=== PATIENT | male | born 1950 | race Caucasian/White ===

== ENCOUNTER 2022-03-02 09:42 | Emergency (ER) | payer MEDICARE, SELFPAY ==
[2022-03-02 09:45] VITALS: BP 127/76; PULSE 90; RESP 20; TEMP 36.8; O2SAT 98; BMI 21.9
--- NOTE | 2022-03-02 09:56 | CTR_ITS ---
PROCEDURE INFORMATION: Exam: CT Abdomen And Pelvis With Contrast Exam date and time: 03/02/2022 10:48 AM Age: 72 years old Clinical indication: Abdominal pain; Localized; Lower; Prior surgery; Additional info: Abd pain TECHNIQUE: Imaging protocol: Computed tomography of the abdomen and pelvis with contrast. Radiation optimization: All CT scans at this facility use at least one of these dose optimization techniques: automated exposure control; mA and/or kV adjustment per patient size (includes targeted exams where dose is matched to clinical indication); or iterative reconstruction. Contrast material: OMNI 300; Contrast volume: 95 ml; Contrast route: INTRAVENOUS (IV); COMPARISON: No relevant prior studies available. RADIATION DOSE METRICS: Total DLP (mGy-cm): 1249.13 FINDINGS: Lungs: There are emphysematous changes at the lung bases. Liver: Normal. No mass. Gallbladder and bile ducts: Normal. No calcified stones. No ductal dilation. Pancreas: Normal. No ductal dilation. Spleen: Small incidental splenule. Adrenal glands: Normal. No mass. Kidneys and ureters: 4.4 cm left renal cyst has benign features. Follow-up is not necessary. Stomach and bowel: There are multiple colonic diverticula. Associated mucosal thickening and mesenteric inflammatory stranding is present at the junction of the distal descending and sigmoid colon consistent with diverticulitis. No large abscess formation is seen. Appendix: No evidence of appendicitis. Intraperitoneal space: Unremarkable. No free air. No significant fluid collection. Vasculature: Multi-vessel atherosclerotic disease. Lymph nodes: Unremarkable. No enlarged lymph nodes. Urinary bladder: See Reproductive finding. Reproductive: Prostate gland indents the base of the bladder consistent with median lobe enlargement. Bones/joints: There are severe degenerative changes in the visualized spine. Patient is status post L4-L5 and L5-S1 interbody fusion. There are broad-based disc osteophyte complexes across the L2-L3 and L3-L4 levels. Soft tissues: Unremarkable. CT/CT abdomen pelvis w con* [id number] IMPRESSION: Findings consistent with acute diverticulitis. COMMENTS: Consistent with the [place] [employer]'s Incidental Findings Committee white paper (J Am Osiel Radiol 2018): Any incidental renal lesion less than 1 cm or classified as too small to characterize, or any incidental cystic renal lesion characterized as simple-appearing, is likely benign. No follow-up imaging is recommended for these lesions per consensus recommendations based on imaging criteria.
--- NOTE | 2022-03-02 09:56 | ECG_ITS ---
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 Measurements Intervals [place] Rate: 83 P: 62 MA: 180 QRS: 6 QRSD: 82 T: 62 QT: 339 QTc: 399 Interpretive Statements SINUS RHYTHM POSSIBLE RIGHT VENTRICULAR CONDUCTION DELAY [RSR (QR) IN V1/V2] No previous ECG available for comparison Electronically Signed On 03-02-2022 11:33:37 CDT by Lamine Liao M.D. [id number]
--- NOTE | 2022-03-02 09:56 | W.ED.ABDPA2 ---
HPI - Abdominal Pain General: Chief Complaint: Abdominal Pain Stated Complaint: chest pain Time Seen by Provider: 03/02/22 09:46 Source: patient Mode of arrival: ambulatory Limitations: no limitations History of Present Illness: 9-year-old male presents emergency complaining of abdominal pain began yesterday. Pain is in the left lower quadrant nausea vomiting diarrhea no hematochezia melena hematemesis cough cramps. No fever sweats chills no dysuria urgency or frequency. MD elicited complaint: abdominal pain Pertinent past history: none Onset (ago): hour(s) Pain Consistency: constant Location: LLQ Severity: moderate Quality: cramping Radiation: none Exacerbating factors: nothing Relieving factors: nothing Associated Symptoms: Reports GI cramping, nausea, poor appetite and vomiting; Denies anorexia, belching, bloating, change in bowel habits, change in stool character, chills, coffee ground emesis, constipation, diarrhea, dyspepsia, dysuria, excessive flatus, fever(s), heartburn, hematochezia, hematuria, hematemesis, fecal incontinence, loose stools, melena and syncope Review of Systems Const: Denies: fever(s) or chills ENMT: Denies: throat pain, ear or mastoid pain, nasal discharge or nasal congestion Card: Denies: syncope Resp: Denies: dyspnea, productive cough or non-productive cough GI: Reports: nausea, vomiting and GI cramping; Denies: hematemesis, coffee ground emesis, heartburn, diarrhea, constipation, bloating, belching, excessive flatus, fecal incontinence, change in bowel habits, change in stool character, hematochezia or melena : Denies: dysuria or hematuria Skin/Breast: Denies: rash or pruritus PFS ED PFSH: Medical History (Updated 03/02/22 @ 13:17 by Kenneth Murphy DO) No pertinent past medical history Surgical History (Updated 03/02/22 @ 13:17 by Kenneth Murphy DO) No pertinent past surgical history Physical Exam Const: COMMON NORMALS: no acute distress GENERAL APPEARANCE: cooperative and comfortable ORIENTATION/CONSCIOUSNESS: Yes awake, Yes oriented to person, Yes oriented to place and Yes oriented to time HENMT: COMMON NORMALS: normocephalic, atraumatic and hearing grossly normal bilaterally HEAD & SCALP: normocephalic and atraumatic Neck/C-Spine: COMMON NORMALS: no JVD Resp: COMMON NORMALS: normal respiratory effort, No retractions, No use of accessory muscles and clear to auscultation bilaterally AUSCULTATION: clear to auscultation bilaterally Cardio: COMMON NORMALS: no JVD, regular rate, regular rhythm and No murmurs present (Cardio) RATE: regular rate RHYTHM: regular rhythm GI: COMMON NORMALS: No hepatosplenomegaly present AUSCULTATION: Yes normoactive bowel sounds PALPATION: Yes Tenderness to palpation present (GI) Details: LLQ, No Guarding due to palpation present (GI) and Yes No hepatosplenomegaly present Extremity: COMMON NORMALS: normal to inspection, capillary refill normal, no clubbing, cyanosis or edema, no calf tenderness and no pedal edema Neuro: SENSORIUM/ORIENTATION: Yes oriented to person, Yes oriented to place and Yes oriented to time Skin: COMMON NORMALS: no rashes or lesions noted GENERAL SKIN EXAM: no rashes or lesions noted Course Vital Signs: Vital signs: Vital Signs Temperature 98.3 F 03/02/22 09:45 Pulse Rate 68 03/02/22 12:48 Respiratory Rate 16 03/02/22 12:48 Blood Pressure 117/72 03/02/22 12:48 Pulse Oximetry 95 03/02/22 12:48 MDM - Abdominal Pain Medical Decision Making CT labs reviewed. Patient has acute diverticulitis and CT normal baseline white count was started on Cipro and Flagyl hydrocodone Zofran to use for relief of symptoms recheck with primary care doctor the next 2 weeks return sooner if has problems. Medical Records I reviewed the patient's medical records. Lab Data I reviewed the patient's lab results. : 03/02/22 09:58 03/02/22 09:58 Labs/Radiology: Radiology Impressions Abdomen/Pelvis CT 03/02/22 09:56 IMPRESSION: Findings consistent with acute diverticulitis. COMMENTS: Consistent with the [place] [employer]'s Incidental Findings Committee white paper (J Am Osiel Radiol 2018): Any incidental renal lesion less than 1 cm or classified as too small to characterize, or any incidental cystic renal lesion characterized as simple-appearing, is likely benign. No follow-up imaging is recommended for these lesions per consensus recommendations based on imaging criteria. Laboratory Results WBC 9.3 10^3/uL (4.0-10.0) 03/02/22 09:58 RBC 5.52 10^6/uL (4.1-5.3) H 03/02/22 09:58 Hgb 16.6 g/dL (11.7-16.6) 03/02/22 09:58 Hct 49.9 % (42.0-52.0) 03/02/22 09:58 MCV 90.4 fl (80-94) 03/02/22 09:58 MCH 30.1 pg (28.0-34.0) 03/02/22 09:58 MCHC 33.3 g/dL (30.0-36.0) 03/02/22 09:58 RDW 13.6 % (12.1-15.1) 03/02/22 09:58 Plt Count 208 10^3/cmm (130-400) 03/02/22 09:58 MPV 10.3 fL (7.4-10.4) 03/02/22 09:58 Neut % (Auto) 74.4 % 03/02/22 09:58 Lymph % (Auto) 13.9 % 03/02/22 09:58 [place] % (Auto) 9.3 % 03/02/22 09:58 Eos % (Auto) 1.7 % 03/02/22 09:58 Baso % (Auto) 0.4 % 03/02/22 09:58 Neut # (Auto) 6.93 10^3/uL (1.8-7.7) 03/02/22 09:58 Lymph # (Auto) 1.3 10^3/uL (0.8-4.8) 03/02/22 09:58 [place] # (Auto) 0.9 10^3/uL (0.2-0.9) 03/02/22 09:58 Eos # (Auto) 0.2 10^3/uL (0.0-0.8) 03/02/22 09:58 Baso # (Auto) 0.0 10^3/uL (0.0-0.1) 03/02/22 09:58 Nucleated RBC % (auto) 0 % 03/02/22 09:58 Nucleated RBCs # 0.0 /100WBC 03/02/22 09:58 Sodium 137 mmol/L (136-145) 03/02/22 09:58 Potassium 4.3 mmol/L (3.5-5.1) 03/02/22 09:58 Chloride 102 mmol/L (98-107) 03/02/22 09:58 Carbon Dioxide 24 mmol/L (22-29) 03/02/22 09:58 Anion Gap 15.3 (5-19) 03/02/22 09:58 BUN 10 mg/dL (8-23) 03/02/22 09:58 Creatinine 0.9 mg/dL (0.7-1.2) 03/02/22 09:58 GFR Calculation 83.4 mL/min (90-130) L 03/02/22 09:58 Glucose 103 mg/dL (65-115) 03/02/22 09:58 Calculated Osmolality 283 mOsm/kg (285-295) L 03/02/22 09:58 Calcium 9.7 mg/dL (8.5-10.5) 03/02/22 09:58 Total Bilirubin 0.6 mg/dL (0.15-1.2) 03/02/22 09:58 AST 32 U/L (0-40) 03/02/22 09:58 ALT 36 U/L (0-41) 03/02/22 09:58 Alkaline Phosphatase 135 IU/L (40-130) H 03/02/22 09:58 Total Protein 7.0 g/dL (6.6-8.7) 03/02/22 09:58 Albumin 4.1 g/dL (3.5-5.2) 03/02/22 09:58 Globulin 2.9 g/dL (1.3-4.6) 03/02/22 09:58 Urine Color Yellow (Yellow) 03/02/22 10:29 Urine Appearance Clear (CLEAR) 03/02/22 10:29 Urine pH 7 (5-7) 03/02/22 10:29 Ur Specific [place] 1.005 (1.005-1.030) 03/02/22 10:29 Urine Protein Neg (Negative) 03/02/22 10:29 Urine Glucose (UA) Norm (Normal) 03/02/22 10:29 Urine Ketones Negative (Negative) 03/02/22 10:29 Urine Blood Neg (Negative) 03/02/22 10:29 Urine Nitrate Negative (Negative) 03/02/22 10:29 Urine Bilirubin Neg (Negative) 03/02/22 10:29 Urine Urobilinogen Norm mg/dL (Negative) 03/02/22 10:29 Ur Leukocyte Esterase Negative (Negative) 03/02/22 10:29 Discharge Plan Discharge Patient Disposition: Home Clinical Impression: Diverticulitis Condition: Stable Prescriptions: New Cipro 500 mg tablet 500 mg PO BID Qty: 20 0RF metronidazole 500 mg tablet 500 mg PO BID 10 Days Qty: 20 0RF hydrocodone-acetaminophen 5-325 mg tablet 1 tab PO Q6H PRN (Reason: pain) Qty: 20 0RF ondansetron HCl 4 mg tablet 4 mg PO Q6H PRN (Reason: nausea and vomiting) Qty: 20 0RF Discharge Orders: Discharge ED (Routine); Ordered 03/02/22 Ordered By: Kenneth Murphy Patient Instructions: Opioid Safety Coding Level of Care Code ED Statistical Methods 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
[2022-03-02 10:01] VITALS: BP 148/87; PULSE 89; RESP 20; O2SAT 97
[2022-03-02 10:04] LABS: Basophils % 0.4 %; Eosinophils # 0.2 10^3/uL (0.0-0.8); Eosinophils % 1.7 %; Hematocrit 49.9 % (42.0-52.0); Hemoglobin 16.6 g/dL (11.7-16.6); Lymphocytes # 1.3 10^3/uL (0.8-4.8); Lymphocytes % 13.9 %; Mean Corpuscular HGB Conc 33.3 g/dL (30.0-36.0); Mean Corpuscular Hemoglobin 30.1 pg (28.0-34.0); Mean Corpuscular Volume 90.4 fl (80-94); Mean Platelet Volume 10.3 fL (7.4-10.4); Monocytes # 0.9 10^3/uL (0.2-0.9); Monocytes % 9.3 %; Neutrophils # 6.93 10^3/uL (1.8-7.7); Neutrophils % 74.4 %; Nucleated Red Blood Cells % 0 %; Platelet Count 208 10^3/cmm (130-400); Red Blood Count 5.52 10^6/uL (4.1-5.3); Red Cell Distribution Width 13.6 % (12.1-15.1); White Blood Count 9.3 10^3/uL (4.0-10.0)
[2022-03-02] MEDS: lactated ringers 1,000 ML 999 ML IV (10:05)
[2022-03-02] MEDS: ondansetron 2 mg/ML SDV 2 mL 4 MG IVP (10:05)
--- NOTE | 2022-03-02 10:06 | PC.NURSE ---
PT PLACED ON CONTINUOUS BEDSIDE CARDIAC, BP AND O2 MONITOR.
[2022-03-02 10:09] VITALS: RESP 16; O2SAT 98
[2022-03-02] MEDS: morphine 4 mg/mL SDV 1 mL IVP (10:09)
[2022-03-02 10:28] LABS: Alanine Aminotransferase 36 U/L (0-41); Albumin Level 4.1 g/dL (3.5-5.2); Alkaline Phosphatase 135 IU/L (40-130); Aspartate Amino Transferase 32 U/L (0-40); Blood Urea Nitrogen 10 mg/dL (8-23); Calcium 9.7 mg/dL (8.5-10.5); Carbon Dioxide 24 mmol/L (22-29); Chloride 102 mmol/L (98-107); Creatinine Clr Calc Pharmacy 70.2822; Globulin 2.9 g/dL (1.3-4.6); Glomerular Filtration Rate 83.4 mL/min (90-130); Glucose 103 mg/dL (65-115); Osmolality Calculated 283 mOsm/kg (285-295); Sodium 137 mmol/L (136-145); Total Bilirubin 0.6 mg/dL (0.15-1.2)
[2022-03-02 10:33] LABS: Anion Gap 15.3 (5-19); Potassium 4.3 mmol/L (3.5-5.1)
[2022-03-02] MEDS: iohexol 300 mg/mL 100 mL Btl IV (10:47)
[2022-03-02 11:01] LABS: Add Urine Microscopic? NO; Charge for UA Resulting for Rev
[2022-03-02 11:16] LABS: Bilirubin Urine Neg (Negative); Blood Urine Neg (Negative); Glucose Urine UA Norm (Normal); Ketones Urine Negative (Negative); Leukocyte Esterase Urine Negative (Negative); Nitrate Urine Negative (Negative); Protein Urine Neg (Negative); Specific Gravity, Urine 1.005 (1.005-1.030); Urine Appearance Clear (CLEAR); Urine Color Yellow (Yellow); Urobilinogen Urine Norm (Negative); pH Urine 7 (5-7)
[2022-03-02 12:48] VITALS: BP 117/72; PULSE 68; RESP 16; O2SAT 95
== END 2022-03-02 12:49 | disposition home or self-care (01) ==
PROVIDERS: Emergency Provider Family Medicine
DX: K57.32 Diverticulitis of large intestine without perforation or abscess without bleeding (principal)
CPT/HCPCS: 74177; 80053; 81003; 85025; 93005; 96361; 96374; 96375; 99284; J2270; J2405; Q9967

== ENCOUNTER 2022-05-05 00:26 | Inpatient (IN) | payer MEDICARE, SELFPAY ==
[2022-05-05] VITALS (10 sets, daily range): BP systolic 106–129; BP diastolic 48–77; PULSE 69–99; RESP 16–25; TEMP 36.6–39.1; O2SAT 89–99; BMI 22.7
--- NOTE | 2022-05-05 03:41 | XRR_ITS ---
PROCEDURE INFORMATION: Exam: XR Chest Exam date and time: 05/05/2022 4:33 AM Age: 72 years old Clinical indication: Dyspnea; Additional info: SOB, rhonci on L TECHNIQUE: Imaging protocol: XR of the chest. Views: 1 view. Total images: 943 COMPARISON: CT abdomen pelvis w con* [id number] 03/02/2022 10:48 AM FINDINGS: Lungs: Unremarkable. No consolidation. Pleural spaces: Unremarkable. No pleural effusion. No pneumothorax. Heart/Mediastinum: Unremarkable. No cardiomegaly. Bones/joints: Unremarkable. XR/XR chest 1V portable [id number] IMPRESSION: No acute findings.
--- NOTE | 2022-05-05 03:42 | ECG_ITS ---
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 Measurements Intervals [place] Rate: 84 P: 12 GA: 143 QRS: 5 QRSD: 88 T: 44 QT: 380 QTc: 450 Interpretive Statements SINUS RHYTHM Compared to ECG 03/02/2022 10:03:23 No significant changes Electronically Signed On 05-05-2022 9:23:15 CDT by Lamine Liao M.D. [id number]
[2022-05-05] MEDS: ondansetron 2 mg/ML SDV 2 mL 4 MG IVP (04:20)
[2022-05-05] MEDS: ketorolac 30 mg/mL INJ 15 MG IVP (04:21)
[2022-05-05] MEDS: sodium chloride 0.9% 1,000 ML 999 ML IV (04:22)
[2022-05-05 04:58] LABS: Basophils % 0.1 %; Hemoglobin 14.8 g/dL (11.7-16.6); Lymphocytes # 0.8 10^3/uL (0.8-4.8); Lymphocytes % 6.2 %; Mean Corpuscular HGB Conc 34.4 g/dL (30.0-36.0); Mean Corpuscular Hemoglobin 30.5 pg (28.0-34.0); Mean Corpuscular Volume 88.5 fl (80-94); Mean Platelet Volume 10.5 fL (7.4-10.4); Monocytes % 7.3 %; Neutrophils # 11.58 10^3/uL (1.8-7.7); Nucleated Red Blood Cells % 0 %; Platelet Count 226 10^3/cmm (130-400); Red Blood Count 4.86 10^6/uL (4.1-5.3); Red Cell Distribution Width 13.8 % (12.1-15.1); White Blood Count 13.5 10^3/uL (4.0-10.0)
--- NOTE | 2022-05-05 05:03 | ED_ITS ---
HPI - General Adult General: Chief complaint: General Medical Stated complaint: Weakness/bodyaches Time Seen by Provider: 05/05/22 03:40 Source: patient and family History of Present Illness: 72-year-old male he states he worked out in the yard all day yesterday. Late last night, he became achy all over. He states everything hurts. He has some mild shortness of breath. No real chest pain. He states that he has been chilling. He turned the heat on in the car on the way here. He vomited 1 time before he left the home. No other specific symptoms. Onset (ago): hour(s) Location: neck, back, abdomen, upper extremity and lower extremity Radiation: non-radiation Severity: moderate Quality: other Pain Consistency: constant Relieving factors: none Exacerbating factors: none Associated symptoms: Reports dyspnea, fevers/chills, nausea, short of breath, vomiting and weakness (Generalized); Deny chest pain, confusion, cough, headache(s), palpitations or syncope Review of Systems Const: Reports: chills, body aches and change in appetite; Denies: fever(s) Eyes: Denies: change in vision ENMT: Denies: throat pain Card: Denies: chest pain, palpitations or syncope Resp: Reports: dyspnea; Denies: productive cough or non-productive cough GI: Reports: nausea and vomiting Musc: Reports: back pain; Denies: neck pain Neuro: Denies: headache(s) or confusion PFS ED PFSH: Medical History No pertinent past medical history Surgical History No pertinent past surgical history Physical Exam Const: GENERAL APPEARANCE: cooperative and frail appearing (Mildly) NUTRITIONAL APPEARANCE: thin ORIENTATION/CONSCIOUSNESS: Yes awake, Yes oriented to person, Yes oriented to place and Yes oriented to time HENMT: COMMON NORMALS: normocephalic, atraumatic and Normal external nose present HEAD & SCALP: normocephalic and atraumatic FACE & SINUS: normal facial exam and face symmetric NOSE: Normal external nose present and Normal nares present Eye: COMMON NORMALS: Equal, round and reactive pupils present and EOMs intact bilaterally PUPIL: Yes Equal, round and reactive pupils present Neck/C-Spine: GENERAL: Yes trachea midline Chest: CHEST: Yes Symmetrical chest wall rise Resp: COMMON NORMALS: normal respiratory effort and No use of accessory muscles AUSCULTATION: rhonchi right lower Cardio: COMMON NORMALS: regular rate and regular rhythm RATE: regular rate RHYTHM: regular rhythm GI: COMMON NORMALS: Normal to inspection, nondistended, normoactive bowel sounds present and Soft to palpation PALPATION: Yes Soft to palpation and Yes Tenderness to palpation present (GI) Extremity: COMMON NORMALS: no pedal edema Neuro: SENSORIUM/ORIENTATION: Yes oriented to person, Yes oriented to place and Yes oriented to time Course Consultations: Consultation #1: Wild Time: 07:07 Consultation #2: Sadaf Time: 07:17 Vital Signs: Vital signs: Vital Signs Temperature 98.0 F 05/05/22 16:00 Pulse Rate 93 05/05/22 16:00 Respiratory Rate 18 05/05/22 16:25 Blood Pressure 121/64 05/05/22 16:00 Pulse Oximetry 91 05/05/22 16:00 [facility] - General Adult Medical Decision Making 72-year-old male complains of diffuse aches and pain. He states he was working out side yesterday, and believes he may have overdone it. His creatinine is 0.9. His white blood cell count is 13.5. His CK is 396. He denies specific chest pain. His chest x-ray is normal. After fluids and Toradol, he now states his pain is really mainly in the right flank radiating to the right groin. CT is pending. CT shows Slight increase in inflammation and free air anterior to the psoas muscle and proximal small right iliac vessels with no abscess. I spoke with surgery. Recommendations are n.p.o., antibiotics, and he will be glad to follow in consult, but surgery not likely needed. Lab Data : 05/05/22 04:45 05/05/22 04:45 Radiology Impressions Chest X-Ray 05/05/22 03:41 IMPRESSION: No acute findings. Abdomen/Pelvis CT 05/05/22 06:21 IMPRESSION: 1. Trace bibasilar atelectasis or scar. 2. Previously noted diverticulitis of the sigmoid colon shows improvement of adjacent inflammation but slight increase in inflammation and free air anterior to psoas muscle and proximal right iliac vessels. No abscess detected. 3. No renal, ureteral, nor bladder calculi detected. Laboratory Results WBC 13.5 10^3/uL (4.0-10.0) H 05/05/22 04:45 RBC 4.86 10^6/uL (4.1-5.3) 05/05/22 04:45 Hgb 14.8 g/dL (11.7-16.6) 05/05/22 04:45 Hct 43.0 % (42.0-52.0) 05/05/22 04:45 MCV 88.5 fl (80-94) 05/05/22 04:45 MCH 30.5 pg (28.0-34.0) 05/05/22 04:45 MCHC 34.4 g/dL (30.0-36.0) 05/05/22 04:45 RDW 13.8 % (12.1-15.1) 05/05/22 04:45 Plt Count 226 10^3/cmm (130-400) 05/05/22 04:45 MPV 10.5 fL (7.4-10.4) H 05/05/22 04:45 Neut % (Auto) 86.0 % 05/05/22 04:45 Lymph % (Auto) 6.2 % 05/05/22 04:45 [place] % (Auto) 7.3 % 05/05/22 04:45 Eos % (Auto) 0.0 % 05/05/22 04:45 Baso % (Auto) 0.1 % 05/05/22 04:45 Neut # (Auto) 11.58 10^3/uL (1.8-7.7) H 05/05/22 04:45 Lymph # (Auto) 0.8 10^3/uL (0.8-4.8) 05/05/22 04:45 [place] # (Auto) 1.0 10^3/uL (0.2-0.9) H 05/05/22 04:45 Eos # (Auto) 0.0 10^3/uL (0.0-0.8) 05/05/22 04:45 Baso # (Auto) 0.0 10^3/uL (0.0-0.1) 05/05/22 04:45 Nucleated RBC % (auto) 0 % 05/05/22 04:45 Nucleated RBCs # 0.0 /100WBC 05/05/22 04:45 Sodium 135 mmol/L (136-145) L 05/05/22 04:45 Potassium 3.7 mmol/L (3.5-5.1) 05/05/22 04:45 Chloride 103 mmol/L (98-107) 05/05/22 04:45 Carbon Dioxide 19 mmol/L (22-29) L 05/05/22 04:45 Anion Gap 16.7 (5-19) 05/05/22 04:45 BUN 12 mg/dL (8-23) 05/05/22 04:45 Creatinine 0.9 mg/dL (0.7-1.2) 05/05/22 04:45 GFR Calculation 83.4 mL/min (90-130) L 05/05/22 04:45 Glucose 118 mg/dL (65-115) H 05/05/22 04:45 Calculated Osmolality 281 mOsm/kg (285-295) L 05/05/22 04:45 Calcium 8.7 mg/dL (8.5-10.5) 05/05/22 04:45 Magnesium 1.9 mg/dL (1.7-2.3) 05/05/22 04:45 Total Bilirubin 0.9 mg/dL (0.15-1.2) 05/05/22 04:45 AST 30 U/L (0-40) 05/05/22 04:45 ALT 18 U/L (0-41) 05/05/22 04:45 Alkaline Phosphatase 89 IU/L (40-130) 05/05/22 04:45 Creatine Kinase 396 U/L (39-308) H* 05/05/22 04:45 C-Reactive Protein 25.1 mg/L (0.0-4.9) H 05/05/22 04:45 Total Protein 6.4 g/dL (6.6-8.7) L 05/05/22 04:45 Albumin 3.9 g/dL (3.5-5.2) 05/05/22 04:45 Globulin 2.5 g/dL (1.3-4.6) 05/05/22 04:45 Procalcitonin 0.09 ng/mL (0-0.5) 05/05/22 04:45 Urine Color Dark yellow (Yellow) 05/05/22 06:15 Urine Appearance Clear (CLEAR) 05/05/22 06:15 Urine pH 5 (5-7) 05/05/22 06:15 Ur Specific [place] 1.025 (1.005-1.030) 05/05/22 06:15 Urine Protein Neg (Negative) 05/05/22 06:15 Urine Glucose (UA) Norm (Normal) 05/05/22 06:15 Urine Ketones Negative (Negative) 05/05/22 06:15 Urine Blood Neg (Negative) 05/05/22 06:15 Urine Nitrate Negative (Negative) 05/05/22 06:15 Urine Bilirubin 1+ (Negative) H 05/05/22 06:15 Urine Urobilinogen Norm mg/dL (Negative) 05/05/22 06:15 Ur Leukocyte Esterase Negative (Negative) 05/05/22 06:15 Discharge Plan Discharge Patient Disposition: Admitted As Inpatient Admit Provider: Jacey Talavera Clinical Impression: Diverticulitis Condition: Stable Coding Level of Care Code ED Business Banking Representative for Chg Fwd Exam Comprehensive
[2022-05-05 05:18] LABS: Alanine Aminotransferase 18 U/L (0-41); Albumin Level 3.9 g/dL (3.5-5.2); Alkaline Phosphatase 89 IU/L (40-130); Anion Gap 16.7 (5-19); Aspartate Amino Transferase 30 U/L (0-40); Blood Urea Nitrogen 12 mg/dL (8-23); C Reactive Protein 25.1 mg/L (0.0-4.9); Calcium 8.7 mg/dL (8.5-10.5); Carbon Dioxide 19 mmol/L (22-29); Chloride 103 mmol/L (98-107); Globulin 2.5 g/dL (1.3-4.6); Glomerular Filtration Rate 83.4 mL/min (90-130); Glucose 118 mg/dL (65-115); Magnesium 1.9 mg/dL (1.7-2.3); Osmolality Calculated 281 mOsm/kg (285-295); Potassium 3.7 mmol/L (3.5-5.1); Sodium 135 mmol/L (136-145); Total Bilirubin 0.9 mg/dL (0.15-1.2); Total Protein 6.4 g/dL (6.6-8.7)
[2022-05-05 05:23] LABS: Procalcitonin 0.09 ng/mL (0-0.5)
[2022-05-05 05:32] LABS: Creatine Phosphokinase 396 U/L (39-308)
--- NOTE | 2022-05-05 05:36 | PC.NURSE ---
Critical lab CK 396. Dr Fernandez notified and Radha GOMEZ
--- NOTE | 2022-05-05 06:21 | CTR_ITS ---
PROCEDURE INFORMATION: Exam: CT Abdomen And Pelvis Without Contrast Exam date and time: 05/05/2022 6:33 AM Age: 72 years old Clinical indication: Abdominal pain; Flank; Right; Additional info: R flank and groin pain TECHNIQUE: Imaging protocol: Computed tomography of the abdomen and pelvis without contrast. Total images: 382 Radiation optimization: All CT scans at this facility use at least one of these dose optimization techniques: automated exposure control; mA and/or kV adjustment per patient size (includes targeted exams where dose is matched to clinical indication); or iterative reconstruction. COMPARISON: CT abdomen pelvis w con* [id number] 03/02/2022 10:48 AM RADIATION DOSE METRICS: Total DLP (mGy-cm): 775.7 FINDINGS: Lungs: Trace bibasilar atelectasis or scar. Liver: Normal. No mass. Gallbladder and bile ducts: Normal. No calcified stones. No ductal dilation. Pancreas: Normal. No ductal dilation. Spleen: Normal. No splenomegaly. Adrenal glands: Normal. No mass. Kidneys and ureters: 5 cm Left kidney cyst incompletely evaluated due to no IV contrast. No renal, ureteral, nor bladder calculi detected. Stomach and bowel: Previously noted diverticulitis of the sigmoid colon shows improvement of adjacent inflammation but slight increase in inflammation and free air anterior to psoas muscle and proximal right iliac vessels. No abscess detected. Appendix: No evidence of appendicitis. Intraperitoneal space: See Stomach and bowel finding. Vasculature: Moderate atherosclerotic disease is evident. Incidental phleboliths noted. Lymph nodes: Unremarkable. No enlarged lymph nodes. Urinary bladder: See Kidneys and ureters finding. Reproductive: Unremarkable as visualized. Bones/joints: Postsurgical changes noted adjacent to left iliac vessels and lumbosacral junction. Fused L4-L5 vertebrae. L2-4 Degenerative disc disease with disc space narrowing and osteophyte formation. Soft tissues: Unremarkable. CT/CT kidney stone [id number] IMPRESSION: 1. Trace bibasilar atelectasis or scar. 2. Previously noted diverticulitis of the sigmoid colon shows improvement of adjacent inflammation but slight increase in inflammation and free air anterior to psoas muscle and proximal right iliac vessels. No abscess detected. 3. No renal, ureteral, nor bladder calculi detected.
[2022-05-05 07:11] LABS: Add Urine Microscopic? NO; Charge for UA Resulting for Rev
[2022-05-05 07:28] LABS: Bilirubin Urine 1+ (Negative); Blood Urine Neg (Negative); Glucose Urine UA Norm (Normal); Ketones Urine Negative (Negative); Leukocyte Esterase Urine Negative (Negative); Nitrate Urine Negative (Negative); Protein Urine Neg (Negative); Specific Gravity, Urine 1.025 (1.005-1.030); Urine Appearance Clear (CLEAR); Urine Color Dark Yellow (Yellow); Urobilinogen Urine Norm (Negative); pH Urine 5 (5-7)
[2022-05-05] MEDS: piperacillin-tazobactam 3.375 GM in sodium chloride 0.9% (plus) 50 ML IV ×3 (07:46→20:25)
--- NOTE | 2022-05-05 08:59 | PM.HP ---
Providers/Chief Complaint Admitting Physician: Jacey Talavera MD Chief Complaint: Weakness/bodyaches History of Present Illness Emanuel Fu is a 72 year old male with no significant past medical history except diverticulitis episode last month presented to the hospital today with more abdominal pain in the right lower quadrant area. He states he was feeling better after his last hospital stay but today the pain became back. He says pain meds made it better but there is nothing else that relieved the pain or worsened it. He describes it at 6 out of 10 intensity at this time. He also says his abdomen is a little sore. He denies any history of constipation, diarrhea, any other trouble in the past. He does have a surgical history of omental removal in 2008. He is unable to tell me exactly why that was removed. He also had a spinal fusion done in 1991. He does not remember specific details. Review of systems negative except noted above in HPI. Denies being a smoker. Denies alcohol. ED course: Pressure 106/77, respiratory 20, pulse rate 88, temperature 98.5, pulse ox 94% on room air. WBC 13.5, CK3 96. CT abdomen showed slight increase in inflammation and free air anterior to psoas muscle and proximal small right iliac vessels with no abscess. Surgery was consulted. Hospitalist service will admit the patient. Medications/Allergies Home Medications Medication Instructions Recorded Confirmed Last Taken Type No Known Home Medications 05/05/22 05/05/22 Unknown History Allergies Allergy/AdvReac Type Severity Reaction Status Date / Time No Known Allergies Allergy Verified 03/02/22 09:45 PFSH Acute PFSH: Medical History No pertinent past medical history Surgical History No pertinent past surgical history Vitals/I&O/Wt Last Vital Signs Temp 98.5 F 05/05/22 04:55 Pulse 69 05/05/22 08:30 Resp 18 05/05/22 08:30 BP 119/65 05/05/22 08:30 Pulse Ox 95 05/05/22 08:30 Weight last 48 hrs Weight 65.771 kg Physical Exam Narrative: General: Alert oriented x3, patient seen laying in bed appearing comfortable at this time. No acute distress. Elderly male. Wearing glasses. HEENT: Normocephalic, atraumatic, EOMI, breathing normally. Cardio: Regular rate rhythm, normal S1-S2, no murmurs rubs gallops Respiratory: Good bilateral air entry, no wheezes no rhonchi appreciated, clear to auscultation bilaterally GI: Abdomen soft, mildly tender to palpation right lower quadrant, nondistended, bowel sounds + Behavior: Appropriate and cooperative Extremities: no edema, no cyanosis Data : 05/05/22 04:45 05/05/22 04:45 A&P Assessment and plan (1) Diverticulitis of large intestine with complication: Status: Acute Plan #Acute diverticulitis with microperforation #Leukocytosis secondary to above #Mild elevation CPK, rhabdomyolysis -Lactic acid negative. CK3 96 -Check urine culture ? Check blood cultures ? Tylenol for fever if needed. ? Keep patient n.p.o. Once abdominal pain resolves we will start on clear liquids. -General surgery following and on board. ? Continue Zosyn ? He will need to complete 14 days of antibiotics ? If he deteriorates surgery may be warranted. Low threshold to reimage. ? Serial abdominal exams -Continue IV fluids. Full code DVT prophylaxis Heparin Attestations Medical Necessity Statement*: Requires inpatient management of acute diverticulitis with microperforation. Requires IV antibiotics at this time. Expect greater than 48-hour stay. 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
[2022-05-05] MEDS: sodium chloride 0.9% 1,000 ML 75 ML IV ×2 (09:32→16:26)
[2022-05-05] MEDS: famotidine 20 mg/2 mL INJ IVP ×2 (09:32→20:24)
[2022-05-05] MEDS: heparin 5,000 unit/mL INJ 1 mL 5000 UNIT SUBCUT ×2 (09:33→20:24)
--- NOTE | 2022-05-05 12:05 | PM.CONSULT ---
Providers/Reason For Consult Consulting Physician/Specialty*: Dr. Ottoniel Rome DO Reason for Consult*: diverticulitis with microperforation Attending Physician: Jacey Talavera MD History of Present Illness History of Present Illness Emanuel Fu is a 72 year old male who was diagnosed with his first episode of acute diverticulitis in March. He was only given 10 days of antibiotics during this episode. He temporarily got better but then yesterday while working in his yard started developing sharp left lower quadrant abdominal pain. He denies any fever chills denies any nausea or vomiting. Denies any diarrhea or constipation. His pain is sharp and severe, located in the left lower quadrant. Pain does not radiate. Palpation makes pain worse. Nothing seems to make pain better. Denies any hematochezia or melena Review of Systems General: Reports: 10 or more systems reviewed and unremarkable except in HPI and below Medications/Allergies Home Medications Medication Instructions Recorded Confirmed Last Taken Type No Known Home Medications 05/05/22 05/05/22 Unknown History Allergies Allergy/AdvReac Type Severity Reaction Status Date / Time No Known Allergies Allergy Verified 03/02/22 09:45 Current Medications Generic Name Dose Route Start Last Admin Trade Name Freq PRN Reason Stop Dose Admin Famotidine 20 mg 05/05/22 09:00 05/05/22 09:32 Famotidine 20 Mg/2 Ml Inj IVP 20 mg Q12H DORIAN Administration Heparin Sodium (Porcine) 5,000 unit 05/05/22 09:00 05/05/22 09:33 Heparin 5,000 Unit/Ml Inj 1 Ml SUBCUT 5,000 unit Q12H DORIAN Administration Sodium Chloride 1,000 mls @ 75 mls/hr 05/05/22 09:00 05/05/22 09:32 Sodium Chloride 0.9% IV 75 mls/hr .[id number] DORIAN Administration PFSH Acute PFSH: Medical History No pertinent past medical history Surgical History No pertinent past surgical history Vitals/I&O/Wt Last Vital Signs Temp 98 F 05/05/22 09:04 Pulse 74 05/05/22 09:04 Resp 18 05/05/22 09:04 BP 114/53 05/05/22 09:04 Pulse Ox 95 05/05/22 09:04 Weight last 48 hrs Weight 145 lb Weight 145 lb Physical Exam Narrative: General : Patient is well developed , no acute distress, oriented x3 Head : Normal cephalic, a-traumatic. Ears : Pinnae and external canal are normal. Hearing is normal. Eyes : PERRLA, Sclera and injection are normal. No conjunctival discharge. Nose : Mucous membranes are without erythema. Throat : buccal mucosa is normal, gums are without significant recession or hypertrophy. Lungs : Equal chest rise bilaterally, no use of accessory muscles, trachea is midline. Cor : Rate and rhythm are normal. Abdomen : Soft, mild D, TTP LLQ, no g/r/m Extremities : No edema, no cyanosis or clubbing, dorsalis pedis pulses are present bilaterally, non-tender to palpation of calves. Upper extremities are normal bilaterally. Back : non-tender to palpation, no CVA tenderness. Neuro : CN II - XII intact, Upper and lower extremities have equal and full strength Data : 05/05/22 04:45 05/05/22 04:45 Micro: Microbiology 05/05/22 09:50 Blood Culture - Preliminary Blood SPECIMEN COLLECTED 05/05/22 09:42 Blood Culture - Preliminary Blood SPECIMEN COLLECTED A&P Assessment and plan (1) Diverticulitis of large intestine with complication: Status: Acute Plan IV fluids Zosyn NPO. Will advance diet to liquids once pain improves Hopefully we can avoid surgery at this time Patient will require a 14-day course of antibiotics Coding Level of Care Code Acute Book Shelver for [facility] Diagnoses Diverticulitis of large intestine with complication K57.32
[2022-05-05] MEDS: morphine 4 mg/mL SDV 1 mL 1 MG IVP (16:25)
[2022-05-06] VITALS (7 sets, daily range): BP systolic 101–118; BP diastolic 53–65; PULSE 67–95; RESP 16–18; TEMP 36.7–38.9; O2SAT 92–96
[2022-05-06] MEDS: acetaminophen 325 mg Tablet 650 MG PO (00:37)
[2022-05-06] MEDS: sodium chloride 0.9% 1,000 ML 75 ML IV (05:06)
[2022-05-06] MEDS: piperacillin-tazobactam 3.375 GM in sodium chloride 0.9% (plus) 50 ML IV ×3 (05:07→20:37)
[2022-05-06 05:30] LABS: Basophils % 0.1 %; Hematocrit 39.4 % (42.0-52.0); Lymphocytes # 0.9 10^3/uL (0.8-4.8); Lymphocytes % 8.3 %; Mean Corpuscular Hemoglobin 30.6 pg (28.0-34.0); Mean Corpuscular Volume 92.7 fl (80-94); Mean Platelet Volume 10.4 fL (7.4-10.4); Monocytes # 0.8 10^3/uL (0.2-0.9); Monocytes % 7.1 %; Neutrophils # 9.27 10^3/uL (1.8-7.7); Nucleated Red Blood Cells % 0 %; Platelet Count 144 10^3/cmm (130-400); Red Blood Count 4.25 10^6/uL (4.1-5.3); Red Cell Distribution Width 14.6 % (12.1-15.1)
[2022-05-06 05:47] LABS: Alanine Aminotransferase 13 U/L (0-41); Albumin Level 2.9 g/dL (3.5-5.2); Alkaline Phosphatase 67 IU/L (40-130); Anion Gap 16.7 (5-19); Aspartate Amino Transferase 19 U/L (0-40); Blood Urea Nitrogen 15 mg/dL (8-23); Calcium 7.8 mg/dL (8.5-10.5); Carbon Dioxide 17 mmol/L (22-29); Chloride 109 mmol/L (98-107); Globulin 2.4 g/dL (1.3-4.6); Glomerular Filtration Rate 73.9 mL/min (90-130); Glucose 69 mg/dL (65-115); Osmolality Calculated 287 mOsm/kg (285-295); Potassium 3.7 mmol/L (3.5-5.1); Sodium 139 mmol/L (136-145); Total Protein 5.3 g/dL (6.6-8.7)
[2022-05-06] MEDS: famotidine 20 mg/2 mL INJ IVP ×2 (08:22→20:37)
[2022-05-06] MEDS: heparin 5,000 unit/mL INJ 1 mL 5000 UNIT SUBCUT ×2 (08:22→20:39)
--- NOTE | 2022-05-06 09:47 | PC.CHAP ---
Pastoral Care Encounter/Spiritual Assessment Type of Contact [] Declined talent buyer visit [] Patient/Family/Request visit [] Outpatient visit [] Follow-up visit [] Physician referral [] Code/Alert [x] Routine visit [] Staff referral [] Actively dying [] Patient sleeping [] Family support [] [] Out of room [] Palliative care [] [] Receiving care in room [] Pre-surgical visit [] Trauma [] Long length of stay [] ICU visit [] Other: Relational/Emotional Strength [] Patient feels connected with others/family/visitors/staff [] Distress [] Loneliness/isolation [] Abandonment Spirituality of Patient [x] Person of Mayra [] Attends Latter-Day of their Mayra [x] Believes in Prayer [] Reads Bible or Anabaptist materials [] There are Spiritual issues to be addressed Directory Compiler Interventions [x] Prayer [] Active listening [x] Non-anxious presence [x] Spiritual/emotional support [] Crisis/trauma care [] Spiritual counseling [] Bereavement support [] Provided bereavement packet [] Provided Bible/devotional materials [] Provided toy/stuffed animal, coloring book to patient or family member [] Provided Communion [] Anointing/[place] [] Salvation [x] Completed spiritual assessment [] Other: Impact on Illness or Injury [] Angry [] Fearful [] Anxious [] Often cries [] Exhaustion [] Unable to work [] Unable to attend baptist [] Unable to walk/stand [] Unable to read [] Unable to drive [] Unable to eat/drink [] Unable to sleep [] Unable to be with family [] Patient intubated [] Other: Summary Time spent with patient 10 min
--- NOTE | 2022-05-06 11:16 | PM.PN ---
Subjective Subjective: Seen this morning. He had a fever last night 102. Yesterday he had pain and was given morphine 1 mg x 1. He has not asked for any more pain medications after that. When I saw him this morning he said at this time he was comfortable and not really having a lot of abdominal pain. Vitals/I&O/Wt Last Vital Signs Temp 98.4 F 05/06/22 08:00 Pulse 86 05/06/22 08:00 Resp 16 05/06/22 08:00 BP 108/53 05/06/22 08:00 Pulse Ox 94 05/06/22 08:00 05/05/22 05/06/22 05/06/22 22:59 06:59 14:59 Intake Total 50 / 1100 1000 / 2100 50 / 50 Output Total 200 / 200 200 / 400 Balance -150 / 900 800 / 1700 50 / 50 Weight last 48 hrs Weight 65.771 kg Weight 65.771 kg Physical Exam Narrative: General: Alert oriented x3, patient seen laying in bed appearing comfortable at this time.? No acute distress.? Elderly male.? Wearing glasses. HEENT: Normocephalic, atraumatic, EOMI, breathing normally. Cardio: Regular rate rhythm, normal S1-S2, no murmurs rubs gallops Respiratory: Good bilateral air entry, no wheezes no rhonchi appreciated, clear to auscultation bilaterally GI: Abdomen soft, mildly tender to palpation right lower quadrant, nondistended, bowel sounds +, slightly better compared to yesterday. Behavior: Appropriate and cooperative Extremities: no edema, no cyanosis ? Data : 05/06/22 05:17 05/06/22 05:17 Micro: Microbiology 05/05/22 09:50 Blood Culture - Preliminary Blood NEGATIVE TO DATE 05/05/22 09:42 Blood Culture - Preliminary Blood NEGATIVE TO DATE A&P Assessment and plan (1) Diverticulitis of large intestine with complication: Status: Acute (2) Diverticulitis: Status: Acute Plan #Acute diverticulitis with microperforation #Leukocytosis secondary to above #Mild elevation CPK, rhabdomyolysis -Lactic acid negative.? CK 396 at admission. -Urine culture pending ? Blood cultures negative to date ? Tylenol for fever if needed. -Leukocytosis improving. ? Keep patient n.p.o.? Once abdominal pain resolves we will start on clear liquids. -General surgery following and on board. ? Continue Zosyn ? He will need to complete 14 days of antibiotics ? If he deteriorates surgery may be warranted.? Low threshold to reimage. ? Serial abdominal exams -Continue IV fluids. Full code DVT prophylaxis Heparin Attestations Medical Necessity Statement*: Requires inpatient management of acute diverticulitis with microperforation.? Requires IV antibiotics at this time.? 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
--- NOTE | 2022-05-06 18:23 | PM.PN ---
Subjective Subjective: Patient reports that his pain has improved. Reports passing flatus but no bowel movement. Denies any nausea or vomiting. Vitals/I&O/Wt Last Vital Signs Temp 98.0 F 05/06/22 15:54 Pulse 84 05/06/22 15:54 Resp 18 05/06/22 15:54 BP 110/58 05/06/22 15:54 Pulse Ox 94 05/06/22 15:54 05/06/22 05/06/22 05/06/22 06:59 14:59 22:59 Intake Total 1000 / 2100 50 / 50 1050 / 1100 Output Total 200 / 400 350 / 350 Balance 800 / 1700 -300 / -300 1050 / 750 Weight last 48 hrs Weight 145 lb Weight 145 lb Physical Exam Narrative: General : Patient is well developed , no acute distress, oriented x3 Head : Normal cephalic, a-traumatic. Ears : Pinnae and external canal are normal. Hearing is normal. Eyes : PERRLA, Sclera and injection are normal. No conjunctival discharge. Nose : Mucous membranes are without erythema. Throat : buccal mucosa is normal, gums are without significant recession or hypertrophy. Lungs : Equal chest rise bilaterally, no use of accessory muscles, trachea is midline. Cor : Rate and rhythm are normal. Abdomen : Soft, ND, tender to palpation left lower quadrant but improved somewhat, no g/r/m Extremities : No edema, no cyanosis or clubbing, dorsalis pedis pulses are present bilaterally, non-tender to palpation of calves. Upper extremities are normal bilaterally. Back : non-tender to palpation, no CVA tenderness. Neuro : CN II - XII intact, Upper and lower extremities have equal and full strength Data : 05/06/22 05:17 05/06/22 05:17 Micro: Microbiology 05/05/22 09:50 Blood Culture - Preliminary Blood NEGATIVE TO DATE 05/05/22 09:42 Blood Culture - Preliminary Blood NEGATIVE TO DATE A&P Assessment and plan (1) Diverticulitis of large intestine with complication: Status: Acute Plan IV fluids Zosyn NPO with ice chips. Will advance diet to liquids once pain improves Hopefully we can avoid surgery at this time Patient will require a 14-day course of antibiotics Attestations Medical Necessity Statement*: Patient with complicated diverticulitis. He is currently n.p.o. and requires IV antibiotics along with pain medication. Will require at least 2 more nights in the hospital. Coding Level of Care Code Acute Instructional Design Specialist for [facility] Diagnoses Diverticulitis of large intestine with complication K57.32
[2022-05-06] MEDS: morphine 4 mg/mL SDV 1 mL 1 MG IVP (20:36)
[2022-05-07] VITALS (7 sets, daily range): BP systolic 107–148; BP diastolic 66–79; PULSE 68–88; RESP 16–18; TEMP 36.5–37.1; O2SAT 94–96
[2022-05-07] MEDS: piperacillin-tazobactam 3.375 GM in sodium chloride 0.9% (plus) 50 ML IV ×3 (04:54→20:41)
[2022-05-07 05:26] LABS: Basophils % 0.2 %; Eosinophils % 0.5 %; Hemoglobin 13.4 g/dL (11.7-16.6); Lymphocytes # 0.7 10^3/uL (0.8-4.8); Lymphocytes % 8.4 %; Mean Corpuscular HGB Conc 33.5 g/dL (30.0-36.0); Mean Corpuscular Hemoglobin 30.7 pg (28.0-34.0); Mean Corpuscular Volume 91.5 fl (80-94); Mean Platelet Volume 10.6 fL (7.4-10.4); Monocytes # 0.8 10^3/uL (0.2-0.9); Monocytes % 9.5 %; Neutrophils # 6.93 10^3/uL (1.8-7.7); Nucleated Red Blood Cells % 0 %; Platelet Count 150 10^3/cmm (130-400); Red Blood Count 4.37 10^6/uL (4.1-5.3); Red Cell Distribution Width 14.4 % (12.1-15.1); White Blood Count 8.6 10^3/uL (4.0-10.0)
[2022-05-07 05:48] LABS: Blood Urea Nitrogen 15 mg/dL (8-23); Carbon Dioxide 15 mmol/L (22-29); Chloride 110 mmol/L (98-107); Glomerular Filtration Rate 95.6 mL/min (90-130); Glucose 64 mg/dL (65-115); Osmolality Calculated 287 mOsm/kg (285-295); Sodium 139 mmol/L (136-145)
[2022-05-07] MEDS: heparin 5,000 unit/mL INJ 1 mL 5000 UNIT SUBCUT (07:46)
[2022-05-07] MEDS: famotidine 20 mg/2 mL INJ IVP ×2 (07:46→20:41)
--- NOTE | 2022-05-07 11:18 | P.PN_ITS ---
Subjective Subjective: Patient reports that his pain has improved. Reports passing flatus but no bowel movement. Denies nausea or vomiting. Vitals/I&O/Wt Last Vital Signs Temp 98.4 F 05/07/22 08:00 Pulse 70 05/07/22 08:00 Resp 18 05/07/22 08:00 BP 126/70 05/07/22 08:00 Pulse Ox 94 05/07/22 08:00 05/06/22 05/07/22 05/07/22 22:59 06:59 14:59 Intake Total 1050 / 1100 50 / 1150 50 / 50 Output Total 650 / 1000 Balance 1050 / 750 -600 / 150 50 / 50 Physical Exam Narrative: General : Patient is well developed , no acute distress, oriented x3 Head : Normal cephalic, a-traumatic. Ears : Pinnae and external canal are normal. Hearing is normal. Eyes : PERRLA, Sclera and injection are normal. No conjunctival discharge. Nose : Mucous membranes are without erythema. Throat : buccal mucosa is normal, gums are without significant recession or hypertrophy. Lungs : Equal chest rise bilaterally, no use of accessory muscles, trachea is midline. Cor : Rate and rhythm are normal. Abdomen : Soft, ND, tender to palpation left lower quadrant but slightly improved, no g/r/m Extremities : No edema, no cyanosis or clubbing, dorsalis pedis pulses are present bilaterally, non-tender to palpation of calves. Upper extremities are normal bilaterally. Back : non-tender to palpation, no CVA tenderness. Neuro : CN II - XII intact, Upper and lower extremities have equal and full st rength Data : 05/07/22 04:42 05/07/22 04:42 Micro: Microbiology 05/05/22 09:50 Blood Culture - Preliminary Blood NEGATIVE TO DATE 05/05/22 09:42 Blood Culture - Preliminary Blood NEGATIVE TO DATE A&P Assessment and plan (1) Diverticulitis of large intestine with complication: Status: Acute Plan IV fluids Zosyn clear liquid diet Hopefully we can avoid surgery at this time Patient will require a 14-day course of antibiotics Attestations Medical Necessity Statement*: Patient with complicated diverticulitis. Requires further IV antibiotics and diet management. Will likely need 2 more days in the hospital at least Coding Level of Care Code Acute Hospitality Director for [facility] Diagnoses Diverticulitis of large intestine with complication K57.32
[2022-05-07] MEDS: sodium chloride 0.9% 1,000 ML 75 ML IV (11:52)
--- NOTE | 2022-05-07 14:53 | P.PN_ITS ---
Subjective Subjective: seen this am. no acute events overnight afebrile passing flatus but has not had a BM yet pain slightly improved but still there at bedside, updated in detail on zosyn at this time. Vitals/I&O/Wt Last Vital Signs Temp 98.0 F 05/07/22 12:00 Pulse 75 05/07/22 12:00 Resp 18 05/07/22 12:00 BP 132/68 05/07/22 12:00 Pulse Ox 96 05/07/22 12:00 05/06/22 05/07/22 05/07/22 22:59 06:59 14:59 Intake Total 1050 / 1100 50 / 1150 50 / 50 Output Total 650 / 1000 Balance 1050 / 750 -600 / 150 50 / 50 Physical Exam Narrative: General: Alert oriented x3, patient seen laying in bed appearing comfortable at this time.? No acute distress.? Elderly male.? Wearing glasses. present at bedside. HEENT: Normocephalic, atraumatic, EOMI, breathing normally. Cardio: Regular rate rhythm, normal S1-S2, no murmurs rubs gallops Respiratory: Good bilateral air entry, no wheezes no rhonchi appreciated, clear to auscultation bilaterally GI: Abdomen soft, mildly tender to palpation right lower quadrant, nondistended, bowel sounds +, slightly better compared to yesterday. Behavior: Appropriate and cooperative Extremities: no edema, no cyanosis Data : 05/07/22 04:42 05/07/22 04:42 Micro: Microbiology 05/05/22 09:50 Blood Culture - Preliminary Blood NEGATIVE TO DATE 05/05/22 09:42 Blood Culture - Preliminary Blood NEGATIVE TO DATE A&P Assessment and plan (1) Diverticulitis of large intestine with complication: Status: Acute (2) Diverticulitis: Status: Acute Plan #Acute diverticulitis with microperforation #Leukocytosis secondary to above #Mild elevation CPK, rhabdomyolysis -Lactic acid negative.? CK 396 at admission. -Urine culture pending ? Blood cultures negative to date ? Tylenol for fever if needed. -Leukocytosis improving. ? Start clear liquid. -General surgery following and on board. ? Continue Zosyn ? He will need to complete 14 days of antibiotics ? If he deteriorates surgery may be warranted.? Low threshold to reimage. ? Serial abdominal exams -Continue IV fluids. Full code DVT prophylaxis Heparin Attestations Medical Necessity Statement*: needs to stay in hospital for mgmt of divirticulitis with microperforation. needs continued in hospital monitoring. started clear liquids today Coding Level of Care Code Acute Community Nutrition Educator for [facility] Diagnoses Diverticulitis of large intestine with complication K57.32 Diverticulitis K57.92
[2022-05-07] MEDS: morphine 4 mg/mL SDV 1 mL 1 MG IVP (18:15)
[2022-05-08] VITALS (7 sets, daily range): BP systolic 98–130; BP diastolic 52–78; PULSE 64–89; RESP 16–18; TEMP 36.3–36.8; O2SAT 94–99
[2022-05-08] MEDS: sodium chloride 0.9% 1,000 ML 75 ML IV ×2 (01:13→15:27)
[2022-05-08] MEDS: piperacillin-tazobactam 3.375 GM in sodium chloride 0.9% (plus) 50 ML IV ×3 (04:48→22:09)
[2022-05-08 06:49] LABS: Basophils % 0.3 %; Eosinophils # 0.2 10^3/uL (0.0-0.8); Eosinophils % 2.5 %; Hematocrit 38.8 % (42.0-52.0); Lymphocytes # 0.7 10^3/uL (0.8-4.8); Mean Corpuscular HGB Conc 33.5 g/dL (30.0-36.0); Mean Corpuscular Hemoglobin 30.2 pg (28.0-34.0); Mean Platelet Volume 10.4 fL (7.4-10.4); Monocytes # 0.7 10^3/uL (0.2-0.9); Monocytes % 10.9 %; Neutrophils # 4.39 10^3/uL (1.8-7.7); Nucleated Red Blood Cells % 0 %; Platelet Count 156 10^3/cmm (130-400); Red Blood Count 4.31 10^6/uL (4.1-5.3); Red Cell Distribution Width 13.9 % (12.1-15.1); White Blood Count 5.9 10^3/uL (4.0-10.0)
[2022-05-08 07:14] LABS: Anion Gap 15.6 (5-19); Blood Urea Nitrogen 8 mg/dL (8-23); Calcium 7.8 mg/dL (8.5-10.5); Carbon Dioxide 17 mmol/L (22-29); Chloride 109 mmol/L (98-107); Glomerular Filtration Rate 111.5 mL/min (90-130); Glucose 79 mg/dL (65-115); Osmolality Calculated 283 mOsm/kg (285-295); Potassium 3.6 mmol/L (3.5-5.1); Sodium 138 mmol/L (136-145)
[2022-05-08] MEDS: acetaminophen 325 mg Tablet 650 MG PO ×2 (08:24→18:18)
[2022-05-08] MEDS: heparin 5,000 unit/mL INJ 1 mL 5000 UNIT SUBCUT ×2 (08:24→22:10)
[2022-05-08] MEDS: famotidine 20 mg/2 mL INJ IVP ×2 (08:25→21:59)
--- NOTE | 2022-05-08 13:32 | PM.PN ---
Subjective Subjective: Seen this morning. He states he is feeling a lot better compared to before. He was sitting up in chair with his at bedside as well. Patient walked around the hallway with his IV pole today. He also stated he had a few bouts of diarrhea. He is also passing gas. Abdominal pain is much better compared to before. He is tolerating his clear liquids. Vitals/I&O/Wt Last Vital Signs Temp 97.8 F 05/08/22 11:49 Pulse 72 05/08/22 11:49 Resp 16 05/08/22 11:49 BP 124/65 05/08/22 11:49 Pulse Ox 96 05/08/22 11:49 05/07/22 05/08/22 05/08/22 22:59 06:59 14:59 Intake Total 410 / 460 1170 / 1630 170 / 170 Output Total 200 / 200 Balance 210 / 260 1170 / 1430 170 / 170 Physical Exam Narrative: General: Alert karla ented x3, patient seen laying i sitt ing up in chair ho lding his IV pole. He just came catalina k from a walk. No acute distress.? E lderly male.? Wear ing glasses. p resent at bedside. HEENT: Normocepha lic, atraumatic, E ALINE, breathing nor vikas. Cardio: Reg ular rate rhythm, normal S1-S2, no m urmurs rubs gallop s Respiratory: Goo d bilateral air en try, no wheezes no rhonchi appreciat ed, clear to auscu ltation bilaterall y GI: Abdomen soft , mildly tender to palpation right l ower quadrant, non distended, bowel s ounds +, significa ntly better compar ed to admission. B ehavior: Appropria te and cooperative Extremities: no e maurilio, no cyanosis Data : 05/08/22 06:38 05/08/22 06:38 A&P Assessment and plan (1) Diverticulitis of large intestine with complication: Status: Acute (2) Diverticulitis: Status: Acute Plan #Acute diverticulitis with microperforation #Leukocytosis secondary to above #Mild elevation CPK, rhabdomyolysis -Lactic acid negative.? CK 396 at admission. -Urine culture pending ? Blood cultures negative to date ? Tylenol for fever if needed. -Leukocytosis improving. ? Continue on clear liquid. Plan is to transition to soft diet in a.m. and see how patient does. -General surgery following and on board. ? Continue Zosyn ? He will need to complete 14 days of antibiotics ? If he deteriorates surgery may be warranted.? Low threshold to reimage. ? Serial abdominal exams -Continue IV fluids. ? General surgery following. Recommendations appreciated. Full code DVT prophylaxis Heparin Attestations Medical Necessity Statement*: needs to stay in hospital for mgmt of divirticulitis with microperforation. needs continued in hospital monitoring. Coding Level of Care Code Acute Manager Human Capital for [facility] Diagnoses Diverticulitis of large intestine with complication K57.32 Diverticulitis K57.92
--- NOTE | 2022-05-08 14:29 | P.PN_ITS ---
Subjective Subjective: Patient reports that his pain is much improved. Reports passing flatus but no bowel movement. Denies nausea or vomiting. Vitals/I&O/Wt Last Vital Signs Temp 97.8 F 05/08/22 11:49 Pulse 72 05/08/22 11:49 Resp 16 05/08/22 11:49 BP 124/65 05/08/22 11:49 Pulse Ox 96 05/08/22 11:49 05/07/22 05/08/22 05/08/22 22:59 06:59 14:59 Intake Total 410 / 460 1170 / 1630 170 / 170 Output Total 200 / 200 Balance 210 / 260 1170 / 1430 170 / 170 Physical Exam Narrative: General : Patient is well developed , no acute distress, oriented x3 Head : Normal cephalic, a-traumatic. Ears : Pinnae and external canal are normal. Hearing is normal. Eyes : PERRLA, Sclera and injection are normal. No conjunctival discharge. Nose : Mucous membranes are without erythema. Throat : buccal mucosa is normal, gums are without significant recession or hypertrophy. Lungs : Equal chest rise bilaterally, no use of accessory muscles, trachea is midline. Cor : Rate and rhythm are normal. Abdomen : Soft, ND, tender to palpation left lower quadrant but slightly improved, no g/r/m Extremities : No edema, no cyanosis or clubbing, dorsalis pedis pulses are present bilaterally, non-tender to palpation of calves. Upper extremities are normal bilaterally. Back : non-tender to palpation, no CVA tenderness. Neuro : CN II - XII intact, Upper and lower extremities have equal and full strength Data : 05/08/22 06:38 05/08/22 06:38 A&P Assessment and plan (1) Diverticulitis of large intestine with complication: Status: Acute Plan IV fluids Zosyn full liquid diet If he progresses as expected, we will give him a soft diet tomorrow and discharge him home Hopefully we can avoid surgery at this time Patient will require a 14-day course of antibiotics Attestations Medical Necessity Statement*: Patient needs further diet management and IV an tibiotics for complicated diverticulitis. Likely only needs 1 more day in the hospital Coding Level of Care Code Acute Fiberglass Laminator for joan [facility] Diagnoses Diverticulitis of large intestine with complication K57.32
[2022-05-09] MEDS: acetaminophen 325 mg Tablet 650 MG PO ×3 (01:56→15:51)
[2022-05-09 03:39] VITALS: BP 114/65; PULSE 80; RESP 12; TEMP 36.8; O2SAT 94
[2022-05-09] MEDS: piperacillin-tazobactam 3.375 GM in sodium chloride 0.9% (plus) 50 ML IV ×2 (04:39→13:30)
[2022-05-09] MEDS: sodium chloride 0.9% 1,000 ML 75 ML IV (04:40)
[2022-05-09 08:00] VITALS: BP 150/81; PULSE 67; RESP 17; TEMP 36.6; O2SAT 99
[2022-05-09] MEDS: heparin 5,000 unit/mL INJ 1 mL 5000 UNIT SUBCUT (08:45)
[2022-05-09] MEDS: famotidine 20 mg/2 mL INJ IVP (08:45)
--- NOTE | 2022-05-09 11:23 | PM.PN ---
Subjective Subjective: Patient reports that his pain is much improved. Reports passing flatus and bowel movement. Denies nausea or vomiting. Vitals/I&O/Wt Last Vital Signs Temp 97.8 F 05/09/22 08:00 Pulse 67 05/09/22 08:00 Resp 17 05/09/22 08:00 BP 150/81 05/09/22 08:00 Pulse Ox 99 05/09/22 08:00 05/08/22 05/09/22 05/09/22 22:59 06:59 14:59 Intake Total 50 / 1220 1204.5 / 2424.5 720 / 720 Output Total 200 / 200 Balance 50 / 1220 1004.5 / 2224.5 720 / 720 Physical Exam Narrative: General : Patient is well developed , no acute distress, oriented x3 Head : Normal cephalic, a-traumatic. Ears : Pinnae and external canal are normal. Hearing is normal. Eyes : PERRLA, Sclera and injection are normal. No conjunctival discharge. Nose : Mucous membranes are without erythema. Throat : buccal mucosa is normal, gums are without significant recession or hypertrophy. Lungs : Equal chest rise bilaterally, no use of accessory muscles, trachea is midline. Cor : Rate and rhythm are normal. Abdomen : Soft, ND, minimally tender to palpation left lower quadrant, no g/r/m Extremities : No edema, no cyanosis or clubbing, dorsalis pedis pulses are present bilaterally, non-tender to palpation of calves. Upper extremities are normal bilaterally. Back : non-tender to palpation, no CVA tenderness. Neuro : CN II - XII intact, Upper and lower extremities have equal and full strength Data : 05/08/22 06:38 05/08/22 06:38 A&P Assessment and plan (1) Diverticulitis of large intestine with complication: Status: Acute Plan IV fluids Zosyn soft diet Surgically stable for discharge home if he tolerates a soft diet Hopefully we can avoid surgery at this time Patient will require a 14-day course of antibiotics- please complete 14 day course with Augmentin He will need a colonoscopy in 6-8 weeks Attestations Medical Necessity Statement*: likely to be discharged home today Coding Level of Care Code Acute Warehouse Hand for joan Miles Diagnoses Diverticulitis of large intestine with complication K57.32
[2022-05-09 12:00] VITALS: BP 110/74; PULSE 68; RESP 17; TEMP 36.9; O2SAT 97
--- NOTE | 2022-05-09 14:20 | P.DS_ITS ---
Discharge Providers Date of Admission: 05/05/22 07:30 Date of Discharge: May 09, 2022 Attending Provider at Admission: Jacey Talavera MD Attending Provider at Discharge: Jacey Talavera MD Diagnoses at Discharge Discharge Diagnosis (1) Diverticulitis of large intestine with complication: Status: Acute Reason for Visit Reason for Visit: Weakness/bodyaches Brief History: Emanuel Fu is a 72 year old male with no significant past medical history except diverticulitis episode last month presented to the hospital today with more abdominal pain in the right lower quadrant area.? He states he was feeling better after his last hospital stay but today the pain became back.? He says pain meds made it better but there is nothing else that relieved the pain or worsened it.? He describes it at 6 out of 10 intensity at this time.? He also says his abdomen is a little sore.? He denies any history of constipation, diarrhea, any other trouble in the past.? He does have a surgical history of omental removal in 2008.? He is unable to tell me exactly why that was removed.? He also had a spinal fusion done in 1991.? He does not remember specific d etails.? Review of systems negative except noted above in HPI.? Denies being a smoker.? Denies alcohol. ED course: Pressure 106/77, respiratory 20, pulse rate 88, temperature 98.5, pulse ox 94% on room air.? WBC 13.5, CK3 96.? CT abdomen showed slight increase in inflammation and free air anterior to psoas muscle and proximal small right iliac vessels with no abscess.? Surgery was consulted.? Hospitalist service will admit the patient. Hospital Course Hospital Course Patient was admitted for management of diverticulitis with microperforation. General surgery following the case very closely. Patient was kept on IV fluids and p.o. with Zosyn. Over the course of days in the hospital he felt better and was able to tolerate clear liquids and subsequently a GI soft diet. After discussion with general surgery it was decided to send patient home. Patient's abdominal pain had improved. Plan is to have him complete a 14-day course of antibiotics and for him to see general surgery as an outpatient for colonoscopy and further management. He was also advised to immediately come back to the ER should he have any more abdominal pain, shortness of breath, chest pain, diarrhea, nausea, vomiting, blood in stool, lightheadedness. Patient demonstrated understanding. was also present at bedside. Patient was discharged home in stable condition. Physical Exam Narrative: General: Alert oriented x3, patient seen laying in bed appearing comfortable at this time.? No acute distress.? Elderly male.? Wearing glasses. present at bedside. HEENT: Normocephalic, atraumatic, EOMI, breathing normally. Cardio: Regular rate rhythm, normal S1-S2, no murmurs rubs gallops Respiratory: Good bilateral air entry, no wheezes no rhonchi appreciated, clear to auscultation bilaterally GI: Abdomen soft, very mildly tender to palpation right lower quadrant but better overall, nondistended, bowel sounds +, very most improved compared to admisson, no guarding, no rigidity Behavior: Appropriate and cooperative Extremities: no edema Discharge Data Studies Completed and Pending Completed Studies During Hospitalization Category Date Time Status CT kidney stone 49722 Urgent Cat Scan 05/05/22 06:21 Completed XR chest 1V portable [id number] Urgent Exams 05/05/22 03:41 Completed Pending at discharge Category Date Time Status Blood Culture Routine Lab 05/05/22 09:50 Results Radiology Impressions Chest X-Ray 05/05/22 03:41 IMPRESSION: No acute findings. Abdomen/Pelvis CT 05/05/22 06:21 IMPRESSION: 1. Trace bibasilar atelectasis or scar. 2. Previously noted diverticulitis of the sigmoid colon shows improvement of adjacent inflammation but slight increase in inflammation and free air anterior to psoas muscle and proximal right iliac vessels. No abscess detected. 3. No renal, ureteral, nor bladder calculi detected. Laboratory Results WBC 5.9 10^3/uL (4.0-10.0) 05/08/22 06:38 RBC 4.31 10^6/uL (4.1-5.3) 05/08/22 06:38 Hgb 13.0 g/dL (11.7-16.6) 05/08/22 06:38 Hct 38.8 % (42.0-52.0) L 05/08/22 06:38 MCV 90.0 fl (80-94) 05/08/22 06:38 MCH 30.2 pg (28.0-34.0) 05/08/22 06:38 MCHC 33.5 g/dL (30.0-36.0) 05/08/22 06:38 RDW 13.9 % (12.1-15.1) 05/08/22 06:38 Plt Count 156 10^3/cmm (130-400) 05/08/22 06:38 MPV 10.4 fL (7.4-10.4) 05/08/22 06:38 Neut % (Auto) 74.0 % 05/08/22 06:38 Lymph % (Auto) 12.0 % 05/08/22 06:38 [place] % (Auto) 10.9 % 05/08/22 06:38 Eos % (Auto) 2.5 % 05/08/22 06:38 Baso % (Auto) 0.3 % 05/08/22 06:38 Neut # (Auto) 4.39 10^3/uL (1.8-7.7) 05/08/22 06:38 Lymph # (Auto) 0.7 10^3/uL (0.8-4.8) L 05/08/22 06:38 [place] # (Auto) 0.7 10^3/uL (0.2-0.9) 05/08/22 06:38 Eos # (Auto) 0.2 10^3/uL (0.0-0.8) 05/08/22 06:38 Baso # (Auto) 0.0 10^3/uL (0.0-0.1) 05/08/22 06:38 Nucleated RBC % (auto) 0 % 05/08/22 06:38 Nucleated RBCs # 0.0 /100WBC 05/08/22 06:38 Sodium 138 mmol/L (136-145) 05/08/22 06:38 Potassium 3.6 mmol/L (3.5-5.1) 05/08/22 06:38 Chloride 109 mmol/L (98-107) H 05/08/22 06:38 Carbon Dioxide 17 mmol/L (22-29) L 05/08/22 06:38 Anion Gap 15.6 (5-19) 05/08/22 06:38 BUN 8 mg/dL (8-23) 05/08/22 06:38 Creatinine 0.7 mg/dL (0.7-1.2) 05/08/22 06:38 GFR Calculation 111.5 mL/min (90-130) 05/08/22 06:38 Glucose 79 mg/dL (65-115) 05/08/22 06:38 Calculated Osmolality 283 mOsm/kg (285-295) L 05/08/22 06:38 Lactic Acid 1.0 mmol/L (0.5-2.2) 05/06/22 11:32 Calcium 7.8 mg/dL (8.5-10.5) L 05/08/22 06:38 Magnesium 2.0 mg/dL (1.7-2.3) 05/06/22 05:17 Total Bilirubin 1.0 mg/dL (0.15-1.2) 05/06/22 05:17 AST 19 U/L (0-40) 05/06/22 05:17 ALT 13 U/L (0-41) 05/06/22 05:17 Alkaline Phosphatase 67 IU/L (40-130) 05/06/22 05:17 Creatine Kinase 396 U/L (39-308) H* 05/05/22 04:45 C-Reactive Protein 25.1 mg/L (0.0-4.9) H 05/05/22 04:45 Total Protein 5.3 g/dL (6.6-8.7) L 05/06/22 05:17 Albumin 2.9 g/dL (3.5-5.2) L 05/06/22 05:17 Globulin 2.4 g/dL (1.3-4.6) 05/06/22 05:17 Procalcitonin 0.10 ng/mL (0-0.5) 05/05/22 09:42 Urine Color Dark yellow (Yellow) 05/05/22 06:15 Urine Appearance Clear (CLEAR) 05/05/22 06:15 Urine pH 5 (5-7) 05/05/22 06:15 Ur Specific [place] 1.025 (1.005-1.030) 05/05/22 06:15 Urine Protein Neg (Negative) 05/05/22 06:15 Urine Glucose (UA) Norm (Normal) 05/05/22 06:15 Urine Ketones Negative (Negative) 05/05/22 06:15 Urine Blood Neg (Negative) 05/05/22 06:15 Urine Nitrate Negative (Negative) 05/05/22 06:15 Urine Bilirubin 1+ (Negative) H 05/05/22 06:15 Urine Urobilinogen Norm mg/dL (Negative) 05/05/22 06:15 Ur Leukocyte Esterase Negative (Negative) 05/05/22 06:15 Vitals Last Vital Signs Temp 98.5 F 05/09/22 12:00 Pulse 68 05/09/22 12:00 Resp 17 05/09/22 12:00 BP 110/74 05/09/22 12:00 Pulse Ox 97 05/09/22 12:00 Discharge Plan Discharge Patient Disposition: Home Condition: Stable Prescriptions: New amoxicillin-pot clavulanate 875-125 mg tablet 1 tab PO BID 12 Days Qty: 24 0RF ondansetron 4 mg tablet,disintegrating 4 mg PO Q6H PRN (Reason: nausea and vomiting) 5 Days Qty: 10 0RF Discharge Orders: Discharge Order (Routine); Ordered 05/09/22 Ordered By: Jacey Talavera Referrals: Ottoniel Rome DO [Physician] - 06/06/22 8:15 am Discharge Diet: GI Soft Discharge Activity: Resume usual activity and Increase activity as tolerated Patient Instructions: Amoxicillin/Clavulanate Potassium (By mouth), Ondansetron (By mouth), Opioid Safety Activity Restrictions/Additional Instructions: Please return to ER immediately if you develop worsening abdominal pain, nausea, vomiting, shortness of breath, blood in stool or urine. Please follow up with your primary care doctor within 4-7 days of discharge. Follow up with general surgery as directed for your colonoscopy and further management. Discharge Attestations Time Spent in Discharge Care*: less than 30 min Quality Metrics Clinical Quality Measures [ No reported AMI, CVA or VTE this stay] Coding Level of Care Code Acute Chg FW DC note Diagnoses Diverticulitis of large intestine with complication K57.32
--- NOTE | 2022-05-09 16:58 | PC.NURSE ---
Discussed discharge, follow up appointments and new medications with patient and spouse. Verbalized understanding.
[2022-05-09 17:15] VITALS: BP 110/74; PULSE 68; RESP 17; TEMP 36.9; O2SAT 97
== END 2022-05-09 17:16 | disposition home or self-care (01) | DRG 392 ==
LOC: ER 07:20 → MEDSURG 08:56
PROVIDERS: Admitting Provider Internal Medicine; Emergency Provider Emergency Medicine; Visit Provider Internal Medicine
DX: K57.20 Diverticulitis of large intestine with perforation and abscess without bleeding (principal); M62.82 Rhabdomyolysis
CPT/HCPCS: 36415; 71045; 74176; 80048; 80053; 81003; 82550; 83605; 83735; 84145; 85025; 86140; 87040; 93005; 96365; 96372; 96375; 99285; J1644; J1885; J2270; J2405; J2543; J3490; J7030

== ENCOUNTER → 2022-06-10 10:53 | Outpatient (BNVA) | payer MEDICARE, SELFPAY | PROVIDERS: Visit Provider Surgery | DX: Z09 Encounter for follow-up examination after completed treatment for conditions other than malignant neoplasm (principal); K57.92 Diverticulitis of intestine, part unspecified, without perforation or abscess without bleeding | CPT/HCPCS: 99203 ==

== ENCOUNTER 2022-08-21 07:08 | Day surgery (SDC) | payer MEDICARE, SELFPAY ==
[2022-08-19 14:02] VITALS: BMI 23.5
[2022-08-21 07:43] VITALS: BP 138/75; PULSE 70; RESP 18; TEMP 36.1; O2SAT 96
[2022-08-21] MEDS: sodium chloride 0.9% 1,000 ML 30 ML IV (07:53)
--- NOTE | 2022-08-21 08:22 | P.HP_ITS ---
Providers/Chief Complaint Chief Complaint: diverticulitis of intestine History of Present Illness Emanuel Fu is a 72 year old male here for colonoscopy Medications/Allergies Home Medications Medication Instructions Recorded Confirmed Last Taken Type No Known Home Medications 06/10/22 08/21/22 Unknown History Allergies Allergy/AdvReac Type Severity Reaction Status Date / Time No Known Allergies Allergy Verified 08/19/22 13:58 PFSH Acute PFSH: Medical History No pertinent past medical history Surgical History History of back surgery History of hemorrhoidectomy No pertinent past surgical history Social History Smoking and tobacco status: former smoker Vitals/I&O/Wt Last Vital Signs Temp 97.0 F L 08/21/22 07:43 Pulse 70 08/21/22 07:43 Resp 18 08/21/22 07:43 BP 138/75 08/21/22 07:43 Pulse Ox 96 08/21/22 07:43 O2 Del Method 08/21/22 07:43 Weight last 48 hrs Weight 150 lb A&P Assessment and plan (1) Diverticulitis of large intestine with complication: Status: Acute Plan Colonoscopy Attestations Medical Necessity Statement*: Home Coding Level of Care Code Acute Behavioral Health Associate for Flor Miles Diagnoses Diverticulitis of large intestine with complication K57.32
--- NOTE | 2022-08-21 08:50 | ANES.PREANE2 ---
Pre-Anesthetic Assessment Height/Weight: Height 1.7 m Weight 68.039 kg Temp Pulse Resp BP Pulse Ox O2 Del Method 97.0 F L 70 18 138/75 96 08/21/22 07:43 08/21/22 07:43 08/21/22 07:43 08/21/22 07:43 08/21/22 07:43 08/21/22 07:43 Operation Date: 08/21/22 08:45 Proposed Procedures p Colonoscopy 36686,K57.92(Not Applicable) - Ottoniel Rome DO Familial anesthetic complications: none Was Beta Karina taken within 24 hours: N/A Was Clonidine taken within 24 hours: N/A Last intake: Intake Last Liquid Date 08/20/22 Last Liquid Time 21:00 Last Solid Date 08/19/22 Last Solid Time 21:00 Social No alcohol and No tobacco Exam alert, oriented x 3, clear to auscultation bilaterally and regular rate & rhythm Airway Mallampati: Class II Dentition: other (no teeth) GI hx diverticulitis Anesthetic Plan ASA status: 1 Anesthesia: MAC Risk of > 500 ml blood loss (7ml/kg in children): No Medications/Allergies Home Medications Medication Instructions Recorded Confirmed Last Taken Type No Known Home Medications 06/10/22 08/21/22 Unknown History Allergies Allergy/AdvReac Type Severity Reaction Status Date / Time No Known Allergies Allergy Verified 08/19/22 13:58 Current Medications Generic Name Dose Route Start Last Admin Trade Name Freq PRN Reason Stop Dose Admin Sodium Chloride 1,000 mls @ 30 mls/hr 08/21/22 07:30 08/21/22 07:53 Sodium Chloride 0.9% IV 08/22/22 07:29 30 mls/hr .Q24H DORIAN Administration PFSH Anesthesia Medical History No pertinent past medical history Surgical History History of back surgery History of hemorrhoidectomy No pertinent past surgical history Social History Smoking and tobacco status: former smoker Data Anesthesia Cardiac Studies: No Data to Display
[2022-08-21 09:27] VITALS: BP 102/60; PULSE 82; RESP 18; TEMP 36.1; O2SAT 97
--- NOTE | 2022-08-21 09:37 | ANE.PACU2 ---
Inpatient post-anesthesia follow up: Airway intact: Yes Vital signs: Temperature 97.0 F Pulse Rate 82 Respiratory Rate 18 Blood Pressure 102/60 Pulse Oximetry 97 Oxygen Delivery Me thod Nasal Cannula Oxygen Flow Rate 3 Fraction of Inspir ed Oxygen Hydration adequate: Yes Nausea and vomiting: No Pain level: 1 Mental status: Baseline
[2022-08-21 09:38] VITALS: BP 103/68; PULSE 85; RESP 18; O2SAT 96
--- NOTE | 2022-08-21 15:05 | ANE.PACU2 ---
Inpatient post-anesthesia follow up: Airway intact: Yes Vital signs: Temperature 97.0 F Pulse Rate 85 Respiratory Rate 18 Blood Pressure 103/68 Pulse Oximetry 96 Oxygen Delivery Me thod Room Air Oxygen Flow Rate 3 Fraction of Inspir ed Oxygen Hydration adequate: Yes Nausea and vomiting: No Pain level: 1 Mental status: Baseline
== END 2022-08-21 09:51 | disposition home or self-care (01) ==
PROVIDERS: Visit Provider Surgery
PROC: 0DJD8ZZ Inspection of Lower Intestinal Tract, Via Natural or Artificial Opening Endoscopic (ICD-10-PCS; CPT 45378; principal; 2022-08-21 08:45)
DX: K57.92 Diverticulitis of intestine, part unspecified, without perforation or abscess without bleeding (principal); Z87.891 Personal history of nicotine dependence
CPT/HCPCS: 45378; J2704; J7030